=== PATIENT | female | born 1930 | race Caucasian/White ===

== ENCOUNTER 2017-06-24 23:32 | Emergency (ER) | payer MEDICARE, OTHER ==
[~2017-06-24] VITALS: Ht 157.5 cm; Wt 69.2 kg
[2017-06-25 00:41] VITALS: BP 159/89
== END 2017-06-25 00:44 | disposition home or self-care (01) ==
LOC: ER 23:33
DX: I10 Essential (primary) hypertension (principal)
CPT/HCPCS: 99281